=== PATIENT | female | born 1945 | race Caucasian/White ===

== ENCOUNTER 2022-07-20 23:28 | Inpatient (IN) | payer MEDICARE, BC ==
[~2022-07-20] VITALS: Ht 165.1 cm; Wt 68.0 kg
--- NOTE | 2022-07-20 23:45 | NUR ---
MEDICALLY CLEARED BY DR SOLORZANO.
[2022-07-21] MEDS ORDERED: LISI10TA29 PO (00:01)
[2022-07-21] MEDS ORDERED: QUET25TA PO (00:01)
[2022-07-21] MEDS ORDERED: FOLI1TAB94 PO (00:01)
[2022-07-21] MEDS ORDERED: ATOR20TA PO (00:01)
[2022-07-21] MEDS ORDERED: PANT40TA2 PO (00:01)
[2022-07-21] MEDS ORDERED: CARV12.5 PO (00:01)
[2022-07-21] MEDS ORDERED: ASPI81TA31 PO (00:01)
[2022-07-21] MEDS ORDERED: SITA50TA PO (00:01)
--- NOTE | 2022-07-21 01:00 | NUR ---
PATIENT RAPID COVID TEST IS POSITIVE. DR SOLORZANO AWARE
[2022-07-21] MEDS ORDERED: MAGNESIUM HYDROXIDE 30 ML LIQUID UDC PO PRN (01:30)
[2022-07-21] MEDS ORDERED: ACETAMINOPHEN 325 MG TABLET PO PRN (01:30)
[2022-07-21] MEDS ORDERED: ONDANSETRON 4 MG/2 ML VIAL IV PRN (01:30)
[2022-07-21] MEDS ORDERED: REMEDY ESSENTIAL ZINC PASTE 113 GM TP PRN (01:30)
[2022-07-21] MEDS ORDERED: ENOXAPARIN SODIUM 40 MG/0.4 ML DISP.SYRIN SQ SCH (02:15)
[2022-07-21] MEDS ORDERED: ENOXAPARIN SODIUM 40 MG/0.4 ML DISP.SYRIN SQ ONE (02:23)
[2022-07-21] MEDS ORDERED: OLANZAPINE 10 MG VIAL IM ONE ×2 (04:45→04:47)
--- NOTE | 2022-07-21 04:50 | NUR ---
Called supervisor melt house Timbo WILLARD, made aware about order for 1:1 sitter, no sitter available at this time.
--- NOTE | 2022-07-21 04:52 | NUR ---
Patient attempting to get out of bed without assistance. Given 10mg Zyprexa IM per MD order.
[2022-07-21 07:01] LABS: HEMATOCRIT 34.7 % (31.2-41.9); MEAN CORPUSCULAR HEMOGLOBIN 28.4 uug (24.7-32.8); MEAN CORPUSCULAR VOLUME 83.6 fL (75.5-95.3); PLATELET COUNT (AUTO) 181 K/uL (179-408)
[2022-07-21 07:15] LABS: CREATININE 1.1 mg/dL (0.6-1.3); MAGNESIUM 1.8 mg/dL (1.8-2.4); PHOSPHOROUS 4.5 mg/dL (2.5-4.9); POTASSIUM 3.9 mmol/L (3.5-5.1)
--- NOTE | 2022-07-21 07:30 | NUR ---
PT IN NAD; VSS. PT A/O X1; CONFUSED; 5150 FOR GD. SITTER AT BED SIDE FOR SAFETY. BUE WRIST RESTRAINTS HAVE BEEN REMOVED.
[2022-07-21 07:32] LABS: THYROID STIMULATING HORMONE 1.709 mIU/mL (0.358-3.740)
[2022-07-21] MEDS: ASPIRIN 81 MG TAB.CHEW PO SCH (09:00)
[2022-07-21] MEDS: CARVEDILOL 12.5 MG TABLET PO SCH ×3 (09:00→21:00)
[2022-07-21] MEDS: FOLIC ACID 1 MG TABLET PO SCH (09:00)
[2022-07-21] MEDS ORDERED: Medication Not On Formulary EA (Sitagliptin Phosphate (Januvia) 25 MG) PO SCH (09:00)
[2022-07-21] MEDS: LINAGLIPTIN 5 MG TABLET PO SCH (09:00)
[2022-07-21] MEDS ORDERED: PANTOPRAZOLE SODIUM 40 MG TABLET.DR PO SCH (09:00)
[2022-07-21] MEDS: LISINOPRIL 10 MG TABLET PO SCH (09:00)
[2022-07-21] MEDS ORDERED: PANTOPRAZOLE SODIUM 40 MG VIAL IV SCH (09:00)
[2022-07-21] MEDS ORDERED: LISINOPRIL 10 MG TABLET ONE (09:53)
[2022-07-21] MEDS ORDERED: ASPIRIN 81 MG TAB.CHEW ONE (09:53)
[2022-07-21] MEDS ORDERED: FOLIC ACID 1 MG TABLET ONE (09:53)
[2022-07-21] MEDS ORDERED: PANTOPRAZOLE SODIUM 40 MG VIAL ONE (09:54)
[2022-07-21] MEDS ORDERED: CARVEDILOL 12.5 MG TABLET ONE (09:54)
[2022-07-21] MEDS ORDERED: PANTOPRAZOLE SODIUM 40 MG TABLET.DR PO ONE (10:10)
[2022-07-21] MEDS: PANTOPRAZOLE SODIUM 40 MG TABLET.DR PO SCH (10:32)
--- NOTE | 2022-07-21 17:14 | NUR ---
PT IN NAD; SITTER AT BEDSIDE FOR CONFUSION AND HIGH FALL RISK. VSS
--- NOTE | 2022-07-21 17:52 | NUR ---
HERMESAR TO [facility]IL[facility] WILLARD; FOR CONTINUATION OF CARE. INTERIOR DESIGN CONSULTANT/SITTER WILL TRANSPORT THE PT TO 322
[2022-07-21 20:00] VITALS: BP 198/58
[2022-07-21] MEDS: ATORVASTATIN 20 MG TABLET PO SCH (20:25)
[2022-07-21] MEDS: QUETIAPINE FUMARATE 25 MG TABLET PO SCH ×2 (20:25→21:00)
[2022-07-21] MEDS: ENOXAPARIN SODIUM 40 MG/0.4 ML DISP.SYRIN SQ SCH (20:28)
--- NOTE | 2022-07-21 21:00 | NUR ---
RECEIVED PT ABLE TO TALK AND WALK WITH ASSISTANCE TO BATHROOM. AFTER URINATING, PT UNABLE TO WALK ANYMORE. ASSISTED HER BACK TO BED VIA WHEELCHAIR WITH TELECOMMUNICATION EQUIPMENT REPAIRER. RIGHT UPPER ARM AND LOWER ARM WERE STIFF AND NO MOVEMENT. NOTED FACIAL DROOP ON RIGHT SIDE OF BED. NIHSS SCORE 21. CALLED CODE STROKE. REPORTED TO DR. TRUJILLO. RECEIVED ORDERS.
--- NOTE | 2022-07-21 21:40 | NUR ---
TELEMED WITH NEURO DR. ROBINA CALLAHAN. RECEIVED ORDERED FOR CTA BRAIN AND CAROTID AND ATIVAN. ADMINISTERED MEDS ORDERED.
[2022-07-21] MEDS ORDERED: ASPIRIN 300 MG RECTAL SUPP RC ONE (21:47)
[2022-07-21] MEDS ORDERED: LORAZEPAM 2 MG/1 ML VIAL IV ONE (22:00)
[2022-07-21] MEDS ORDERED: SWABABLE VALVE TRANSFER SET EA MC ONE (22:07)
[2022-07-21] MEDS ORDERED: IOHEXOL 350 100 ML INFUS..BTL ONE (22:07)
[2022-07-21] MEDS ORDERED: IV NORMAL SALINE 250 ML IV ONE (22:08)
[2022-07-21] MEDS: ENALAPRILAT DIHYDRATE 1.25 MG/1 ML VIAL IV PRN (23:09)
[2022-07-22] VITALS: BP 156/115
[2022-07-22] MEDS: PANTOPRAZOLE SODIUM 40 MG TABLET.DR PO SCH (06:27)
[2022-07-22 06:36] VITALS: BP 134/51
--- NOTE | 2022-07-22 07:30 | NUR ---
PT WAS TRANSFERRED FROM TELE TO JL.
[2022-07-22 07:37] LABS: HEMATOCRIT 35.7 % (31.2-41.9); MEAN CORPUSCULAR HEMOGLOBIN 27.8 uug (24.7-32.8); MEAN CORPUSCULAR VOLUME 83.6 fL (75.5-95.3); PLATELET COUNT (AUTO) 202 K/uL (179-408)
[2022-07-22 08:05] LABS: MAGNESIUM 1.9 mg/dL (1.8-2.4); PHOSPHOROUS 4.5 mg/dL (2.5-4.9); POTASSIUM 3.7 mmol/L (3.5-5.1); TOTAL PROTEIN, SERUM 7.5 g/dL (6.4-8.2)
[2022-07-22] MEDS: LINAGLIPTIN 5 MG TABLET PO SCH (09:20)
[2022-07-22] MEDS: CARVEDILOL 12.5 MG TABLET PO SCH ×2 (09:21→21:21)
[2022-07-22] MEDS: FOLIC ACID 1 MG TABLET PO SCH (09:21)
[2022-07-22] MEDS: LISINOPRIL 10 MG TABLET PO SCH (09:21)
[2022-07-22] MEDS: ASPIRIN 81 MG TAB.CHEW PO SCH (09:22)
[2022-07-22] MEDS: ENALAPRILAT DIHYDRATE 1.25 MG/1 ML VIAL IV PRN (09:22)
[2022-07-22] MEDS: DEXAMETHASONE SOD PHOSPHATE 4 MG INJ IV SCH (10:36)
[2022-07-22 10:50] VITALS: BP 123/52
--- NOTE | 2022-07-22 10:53 | NUR ---
reassessment of pt bp after vasotec administration. BP-123/52, HR-83, 98% O2sat
--- NOTE | 2022-07-22 10:54 | NUR ---
pt is confused. only verbalized "Vanessa Lovingston" repeatedly when ask a question. pt also mimic what others say.
[2022-07-22 11:55] VITALS: BP 123/52
--- NOTE | 2022-07-22 13:44 | NUR ---
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 RECOMMENDATIONS MADE FOR SKIN PROTECTION AND WOUND CARE. DISCUSSED WITH NURSING STAFF. IN AGREEMENT WITH PLAN OF CARE. Addendum: 07/22/22 at 1430 by MEMO REYNOSO RN DR ELEUTERIO HU CALLED FOR SURGICAL CONSULT.
--- NOTE | 2022-07-22 14:18 | NUR ---
pt was downgraded from latonya to tele per md.
[2022-07-22 15:39] VITALS: BP 111/60
[2022-07-22] MEDS: THERAHONEY GEL 1.5 OZ TUBE TOP SCH (18:30)
[2022-07-22 20:00] VITALS: BP 110/62
[2022-07-22] MEDS: ATORVASTATIN 20 MG TABLET PO SCH (21:20)
[2022-07-22] MEDS: QUETIAPINE FUMARATE 25 MG TABLET PO SCH (21:20)
[2022-07-22] MEDS: ENOXAPARIN SODIUM 40 MG/0.4 ML DISP.SYRIN SQ SCH (21:20)
[2022-07-23] VITALS: BP 170/73
[2022-07-23] MEDS: ENALAPRILAT DIHYDRATE 1.25 MG/1 ML VIAL IV PRN ×2 (00:29→18:24)
[2022-07-23 04:39] VITALS: BP 169/73
[2022-07-23] MEDS: PANTOPRAZOLE SODIUM 40 MG TABLET.DR PO SCH (06:19)
[2022-07-23 07:38] LABS: MEAN CORPUSCULAR HEMOGLOBIN 28.1 uug (24.7-32.8); MEAN CORPUSCULAR VOLUME 83.9 fL (75.5-95.3); PLATELET COUNT (AUTO) 182 K/uL (179-408)
[2022-07-23 08:13] LABS: CREATININE 1.1 mg/dL (0.6-1.3); MAGNESIUM 2.1 mg/dL (1.8-2.4); PHOSPHOROUS 4.9 mg/dL (2.5-4.9)
[2022-07-23] MEDS: DEXAMETHASONE SOD PHOSPHATE 4 MG INJ IV SCH (09:27)
[2022-07-23] MEDS: ASPIRIN 81 MG TAB.CHEW PO SCH (09:27)
[2022-07-23] MEDS: FOLIC ACID 1 MG TABLET PO SCH (09:34)
[2022-07-23] MEDS: LINAGLIPTIN 5 MG TABLET PO SCH (09:35)
[2022-07-23] MEDS: LISINOPRIL 10 MG TABLET PO SCH (09:35)
[2022-07-23] MEDS: CARVEDILOL 12.5 MG TABLET PO SCH ×2 (09:35→21:06)
[2022-07-23] MEDS: THERAHONEY GEL 1.5 OZ TUBE TOP SCH (09:40)
[2022-07-23 11:02] VITALS: BP 146/59
--- NOTE | 2022-07-23 19:42 | NUR ---
PATIENT ALERT TO SELF AND VERBALLY RESPONSIVE, UNCLEAR SPEECH; HOWEVER, ABLE TO EXPRESS SHORT WORDS, AZERI SPEAKING. NO C/O PAIN, PATIENT WITH ELEVATED BP READINGS. MEDICATED PRN VASOTEC ORDERED BY MD FOR FD=560/66., POST MEDICATION BP =148/65, PATIENT DENIES ANY HEADACHE, NO S/S OF PHYSICAL OR RESPIRATORY DISTRESS NOTED.
[2022-07-23] MEDS: QUETIAPINE FUMARATE 25 MG TABLET PO SCH (21:06)
[2022-07-23] MEDS: ATORVASTATIN 20 MG TABLET PO SCH (21:06)
[2022-07-23] MEDS: ENOXAPARIN SODIUM 40 MG/0.4 ML DISP.SYRIN SQ SCH (21:08)
[2022-07-24 00:36] VITALS: BP 143/55
[2022-07-24 05:40] VITALS: BP 157/56
[2022-07-24] MEDS: PANTOPRAZOLE SODIUM 40 MG TABLET.DR PO SCH (06:06)
[2022-07-24] MEDS: LINAGLIPTIN 5 MG TABLET PO SCH (08:23)
[2022-07-24] MEDS: ASPIRIN 81 MG TAB.CHEW PO SCH (08:23)
[2022-07-24] MEDS: FOLIC ACID 1 MG TABLET PO SCH (08:23)
[2022-07-24] MEDS: CARVEDILOL 12.5 MG TABLET PO SCH ×2 (08:23→21:13)
[2022-07-24] MEDS: THERAHONEY GEL 1.5 OZ TUBE TOP SCH (08:24)
[2022-07-24] MEDS: LISINOPRIL 10 MG TABLET PO SCH (08:24)
[2022-07-24 11:00] VITALS: BP 162/62
[2022-07-24] MEDS: GLUCERNA SHAKE 237 ML CAN PO SCH ×2 (12:50→16:12)
[2022-07-24] MEDS: ENALAPRILAT DIHYDRATE 1.25 MG/1 ML VIAL IV PRN (12:52)
--- NOTE | 2022-07-24 13:33 | NUR ---
patient takes her monitoring tech leads off. unable to understand of importance of it due to cognitive deficit. however no acute distress noted at this time.
[2022-07-24 14:20] VITALS: BP 149/56
[2022-07-24] MEDS: ARGININE/GLUTAMINE/CALCIUM BMB 1 EACH POWD.PACK PO SCH (16:12)
[2022-07-24] MEDS: PROTEIN SUPPLEMENT (PROSTAT) 30 ML LIQUID PO SCH (16:12)
[2022-07-24 16:39] VITALS: BP 91/40
--- NOTE | 2022-07-24 17:42 | NUR ---
patient is alert to self, awake, no acute distress noted, no cough, no congestion, room air, saturating well, kept safe, clean and dry, wound tx done as ordered, no discharge noted from wound, turned, repositioned. patient tolerating sitting in chair as well.
[2022-07-24 20:23] VITALS: BP 150/67
[2022-07-24] MEDS: QUETIAPINE FUMARATE 25 MG TABLET PO SCH (21:13)
[2022-07-24] MEDS: ATORVASTATIN 20 MG TABLET PO SCH (21:13)
[2022-07-24] MEDS: ENOXAPARIN SODIUM 40 MG/0.4 ML DISP.SYRIN SQ SCH (21:13)
[2022-07-25 04:55] VITALS: BP 172/61
[2022-07-25] MEDS: PANTOPRAZOLE SODIUM 40 MG TABLET.DR PO SCH (06:02)
[2022-07-25] MEDS: ENALAPRILAT DIHYDRATE 1.25 MG/1 ML VIAL IV PRN (06:34)
--- NOTE | 2022-07-25 06:46 | NUR ---
Shift End Report: COVID isolation precaution maintained and observed. In no apparent distress noted. Occasional non productive cough. Medicated once with Tylenol for discomfort with help. BP at 0600 172/61, Vasotec 2.5mg IVP was given as ordered and needed. Will endorsed to oncoming nurse accordingly.Continue current plan of care.
[2022-07-25 07:20] LABS: HEMATOCRIT 36.3 % (31.2-41.9); MEAN CORPUSCULAR HEMOGLOBIN 27.9 uug (24.7-32.8); PLATELET COUNT (AUTO) 169 K/uL (179-408)
[2022-07-25 07:52] LABS: CREATININE 1.3 mg/dL (0.6-1.3); MAGNESIUM 2.1 mg/dL (1.8-2.4); PHOSPHOROUS 4.4 mg/dL (2.5-4.9); POTASSIUM 4.1 mmol/L (3.5-5.1)
[2022-07-25] MEDS: GLUCERNA SHAKE 237 ML CAN PO SCH ×3 (09:18→18:06)
[2022-07-25] MEDS: LISINOPRIL 10 MG TABLET PO SCH (09:19)
[2022-07-25] MEDS: LINAGLIPTIN 5 MG TABLET PO SCH (09:19)
[2022-07-25] MEDS: CARVEDILOL 12.5 MG TABLET PO SCH ×2 (09:19→21:48)
[2022-07-25] MEDS: FOLIC ACID 1 MG TABLET PO SCH (09:19)
[2022-07-25] MEDS: ASPIRIN 81 MG TAB.CHEW PO SCH (09:19)
[2022-07-25] MEDS: THERAHONEY GEL 1.5 OZ TUBE TOP SCH (09:20)
[2022-07-25] MEDS: ARGININE/GLUTAMINE/CALCIUM BMB 1 EACH POWD.PACK PO SCH ×2 (09:22→18:06)
[2022-07-25] MEDS: PROTEIN SUPPLEMENT (PROSTAT) 30 ML LIQUID PO SCH ×2 (09:22→18:07)
[2022-07-25] MEDS ORDERED: ENALAPRILAT DIHYDRATE 1.25 MG/1 ML VIAL IV PRN (09:30)
[2022-07-25] MEDS: AMLODIPINE 5 MG TABLET PO SCH ×2 (10:00→21:48)
[2022-07-25 11:00] VITALS: BP 122/49
[2022-07-25 16:00] VITALS: BP 112/76
[2022-07-25 20:50] VITALS: BP 172/61
[2022-07-25] MEDS: QUETIAPINE FUMARATE 25 MG TABLET PO SCH (21:48)
[2022-07-25] MEDS: ATORVASTATIN 20 MG TABLET PO SCH (21:48)
[2022-07-25] MEDS: ENOXAPARIN SODIUM 40 MG/0.4 ML DISP.SYRIN SQ SCH (21:49)
[2022-07-26 04:32] VITALS: BP 156/55
[2022-07-26] MEDS: PANTOPRAZOLE SODIUM 40 MG TABLET.DR PO SCH (06:13)
[2022-07-26 08:19] LABS: *BILIRUBIN,URIN NEGATIVE (NEGATIVE); *CLARITY,URINE CLOUDY (CLEAR); *COLOR,URINE YELLOW (YELLOW); *KETONES,URINE NEGATIVE (NEGATIVE); *UROBILINOGEN,URINE 0.2 E.U./dl (NORMAL); LEUKOCYTE ESTERASE ,URINE 1+ (NEGATIVE); NITRITE, URINE POSITIVE (NEGATIVE); UGLUCOSE NEGATIVE (NEGATIVE)
[2022-07-26 08:36] VITALS: BP 150/58
[2022-07-26 08:41] LABS: *BLOOD, URINE TRACE (NEGATIVE)
[2022-07-26] MEDS: ASPIRIN 81 MG TAB.CHEW PO SCH (09:19)
[2022-07-26] MEDS: LISINOPRIL 10 MG TABLET PO SCH (09:19)
[2022-07-26] MEDS: AMLODIPINE 5 MG TABLET PO SCH (09:20)
[2022-07-26] MEDS: LINAGLIPTIN 5 MG TABLET PO SCH (09:20)
[2022-07-26] MEDS: CARVEDILOL 12.5 MG TABLET PO SCH (09:20)
[2022-07-26] MEDS: FOLIC ACID 1 MG TABLET PO SCH (09:20)
[2022-07-26] MEDS: GLUCERNA SHAKE 237 ML CAN PO SCH ×3 (09:21→17:00)
[2022-07-26] MEDS: ARGININE/GLUTAMINE/CALCIUM BMB 1 EACH POWD.PACK PO SCH ×2 (09:22→17:00)
[2022-07-26] MEDS: PROTEIN SUPPLEMENT (PROSTAT) 30 ML LIQUID PO SCH ×2 (09:22→17:02)
[2022-07-26] MEDS: THERAHONEY GEL 1.5 OZ TUBE TOP SCH (09:23)
--- NOTE | 2022-07-26 09:40 | NUR ---
pt tolerated PT well. pt walks with fww with 1person assist.
--- NOTE | 2022-07-26 10:15 | NUR ---
pt will be discharge today. pt will go home with home health per cm
[2022-07-26] MEDS ORDERED: CEPH250C PO (10:32)
[2022-07-26] MEDS ORDERED: LINA5TAB PO (10:32)
[2022-07-26] MEDS ORDERED: AMLO-212 PO (10:32)
[2022-07-26 11:30] VITALS: BP 118/43
[2022-07-26 11:31] LABS: BACTERIA,URINE MANY /HPF (NONE SEEN); RBC,URINE 0-3 /HPF (0-3); SQUAMOUS EPITHELIAL CELL,UR FEW /HPF (NONE SEEN); WBC,URINE 20-50 /HPF (0-3)
[2022-07-26 15:59] VITALS: BP 92/50
--- NOTE | 2022-07-26 17:31 | NUR ---
SARAN SPOKE WITH [facility]. THEY GOING TO PICKUP PT IN 2HR.
--- NOTE | 2022-07-26 20:10 | NUR ---
Patient discharged home in stable condition with discharged papers. Assisted to the lobby by VINI. Picked up by grand son Carlos.
== END 2022-07-26 20:10 | disposition home health service (06) | DRG 177 ==
LOC: ER 23:39 → TRANSITION 23:40 → MEDSURG3 07-21 18:13 → TELE3 07-21 21:00 → TELE-TD3 07-21 21:40 → TELE3 07-22 14:20 → MEDSURG3 07-25 23:52
PROVIDERS: ADMIT Internal Medicine; ATTEND Nurse Practitioner Acute Care
DX: U07.1 COVID-19 (principal); G92.8 Other toxic encephalopathy; L89.154 Pressure ulcer of sacral region, stage 4; J12.82 Pneumonia due to coronavirus disease 2019; D68.59 Other primary thrombophilia; E78.5 Hyperlipidemia, unspecified; E88.09 Other disorders of plasma-protein metabolism, not elsewhere classified; F01.50 Vascular dementia, unspecified severity, without behavioral disturbance, psychotic disturbance, mood disturbance, and anxiety; I10 Essential (primary) hypertension; G93.89 Other specified disorders of brain; I48.0 Paroxysmal atrial fibrillation; I25.10 Atherosclerotic heart disease of native coronary artery without angina pectoris; K21.9 Gastro-esophageal reflux disease without esophagitis; Z74.09 Other reduced mobility; E66.9 Obesity, unspecified; Z68.25 Body mass index [BMI] 25.0-25.9, adult; I71.21 Aneurysm of the ascending aorta, without rupture; E11.51 Type 2 diabetes mellitus with diabetic peripheral angiopathy without gangrene; I65.21 Occlusion and stenosis of right carotid artery; F29 Unspecified psychosis not due to a substance or known physiological condition
CPT/HCPCS: 36415; 70450; 70496; 71045; 83550; 83615; 83735; 84100; 84443; 84484; 85025; 85610; 85651; 86140; 93005; A4663; A6209; A6213; C9113; G0378; J1100; J1650; J2060; J2358; J3490; Q9967